=== PATIENT | male | born 1985 | race American Indian/Alaskan Native ===

== ENCOUNTER 2016-10-21 19:59 | Emergency (ER) | payer SELFPAY ==
[2016-10-21 20:15] VITALS: BP 197/120
[2016-10-21 21:42] LABS: Basophils % (Auto) 0.5 % (0.0-1.8); Eosinophils % (Auto) 1.8 % (0.0-4.3); Hematocrit 46.5 % (35.5-45.6); Hemoglobin 15.9 gm/dl (11.8-15.2); Mean Corpuscular HGB Conc 34 % (32-34); Mean Corpuscular Hemoglobin 28 pg (28-32); Mean Corpuscular Volume 82 fl (84-94); Platelet Count 176 K/mm3 (140-440); Red Blood Count 5.69 M/mm3 (3.65-5.03); Red Cell Distribution Width 13.8 % (13.2-15.2); White Blood Count 9.6 K/mm3 (4.5-11.0)
[2016-10-21 22:23] LABS: Blood Urea Nitrogen 12 mg/dL (9-20); Calcium 11.4 mg/dL (8.4-10.2); Carbon Dioxide 24 mmol/L (22-30); Chloride 100.7 mmol/L (98-107); Glucose 120 mg/dL (75-100); Potassium 3.3 mmol/L (3.6-5.0); Sodium 139 mmol/L (137-145)
[2016-10-21 22:37] LABS: Anion Gap 18 mmol/L
--- NOTE | 2016-10-24 19:37 | ED Elopement Review ---
ED Pt Elopement review - Results review Lab results: Laboratory Tests 10/21/16 10/21/16 10/21/16 20:45 20:45 20:45 WBC 9.6 RBC 5.69 H Hgb 15.9 H Hct 46.5 H MCV 82 L MCH 28 MCHC 34 RDW 13.8 Plt Count 176 Lymph % (Auto) 31.6 [place] % (Auto) 7.6 H Eos % (Auto) 1.8 Baso % (Auto) 0.5 Lymph # 3.0 [place] # 0.7 Eos # 0.2 Baso # 0.0 Seg Neutrophils % 58.5 Seg Neutrophils # 5.6 Sodium 139 Potassium 3.3 L Chloride 100.7 Carbon Dioxide 24 Anion Gap 18 BUN 12 Creatinine 0.6 L Estimated GFR > 60 BUN/Creatinine Ratio 20.00 Glucose 120 H Calcium 11.4 H Plasma/Serum Alcohol < 0.01 - Call Back decision Pt Call Back Decision: Call pt to return to ED CASIE (suicidal, hypertensive)
== END 2016-10-21 20:46 ==
LOC: ED 19:59
DX: R45.851 Suicidal ideations (principal); F31.9 Bipolar disorder, unspecified; E78.00 Pure hypercholesterolemia, unspecified; E83.51 Hypocalcemia; Z72.0 Tobacco use; Z53.21 Procedure and treatment not carried out due to patient leaving prior to being seen by health care provider
CPT/HCPCS: 36415; 80048; 85025; G0480; 80320

== ENCOUNTER 2017-01-25 17:17 | Emergency (ER) | payer MEDICARE | END 2017-01-25 19:00 | disposition left against medical advice (07) | LOC: ED 17:17 | DX: L02.429 Furuncle of limb, unspecified (principal); Z53.21 Procedure and treatment not carried out due to patient leaving prior to being seen by health care provider ==

== ENCOUNTER 2017-04-20 14:31 | Emergency (ER) | payer MEDICARE ==
--- NOTE | 2017-04-20 15:05 | Emergency Department Report ---
HPI - General Chief Complaint: Psych Time Seen by Provider: 04/20/17 14:51 - HPI HPI: This is a 32-year-old male who presents to the emergency department via [facility] [employer] from his motel room with the complaint of depression and suicidal ideations. The patient has a history of bipolar disorder and ADHD and says he has not been on medications since he moved down here from [place]. He says that he has the plan to either slit his wrist or overdose on medications. He says that he has been into an inpatient psychiatric facility in the past. He denies any current alcohol use or any illicit drug use or abuse. He called the police himself. He is a tobacco smoker. ED Past Medical Hx - Past Medical History Previous Medical History?: Yes Hx Hypertension: Yes (not on any meds for BP) Hx Psychiatric Treatment: Yes (BIPOLAR not on meds) Additional medical history: High cholesterol/Hypocalcemia/heart murmur - Surgical History Past Surgical History?: Yes Hx Appendectomy: Yes Additional Surgical History: Parothyroidectomy/HERNIA/left ankle surgery - Social History Smoking Status: Current Every Day Smoker Substance Use Type: Prescribed - Medications Home Medications: Home Medications Medication Instructions Recorded Confirmed Last Taken Type No Known Home Medications [No 10/21/16 10/21/16 Unknown History Reported Home Medications] ED Review of Systems ROS: Stated complaint: PSYCH EVAL Other details as noted in HPI Comment: All other systems reviewed and negative Constitutional: denies: chills, fever Eyes: denies: eye pain, eye discharge, vision change ENT: denies: ear pain, throat pain Respiratory: denies: cough, shortness of breath, wheezing Cardiovascular: denies: chest pain, palpitations Gastrointestinal: denies: abdominal pain, nausea, diarrhea Genitourinary: denies: urgency, dysuria Musculoskeletal: denies: back pain, joint swelling, arthralgia Skin: denies: rash, lesions Neurological: denies: headache, weakness, paresthesias Psychiatric: depression, suicidal thoughts. denies: auditory hallucinations, visual hallucinations, homicidal thoughts Physical Exam - Physical Exam Vital Signs: Vital Signs 04/20/17 14:40 Temperature 98.6 F Pulse Rate 82 Respiratory 18 Rate Blood Pressure 148/100 O2 Sat by Pulse 97 Oximetry Physical Exam: GENERAL: The patient is well-developed well-nourished. HEENT: Normocephalic. Atraumatic. Extraocular motions are intact. Patient has moist mucous membranes. Pupils equal reactive to light bilaterally. NECK: Supple. Trachea is midline. CHEST/LUNGS: Clear to auscultation. There is no respiratory distress noted. HEART/CARDIOVASCULAR: Regular. There is no tachycardia. There is no gallop rub or murmur. ABDOMEN: Abdomen is soft, nontender. Patient has normal bowel sounds. There is no abdominal distention. Obese habitus. SKIN: Skin is warm and dry. NEURO: The patient is awake, alert, and oriented. The patient is cooperative. The patient has no focal neurologic deficits. The patient has normal speech. MUSCULOSKELETAL: There is no tenderness or deformity. There is no limitation range of motion. There is no evidence of acute injury. ED Course Vital Signs 04/20/17 14:40 Temperature 98.6 F Pulse Rate 82 Respiratory 18 Rate Blood Pressure 148/100 O2 Sat by Pulse 97 Oximetry ED Medical Decision Making - Lab Data Result diagrams: 04/20/17 15:00 04/20/17 15:00 - Medical Decision Making 32-year-old male presents from his motel room where via PD with suicidal ideations and depression. No auditory or visual hallucinations. Patient does not appear intoxicated. Vital signs stable throughout his ED course. Patient' s blood work thus far is mostly unremarkable. We are waiting for a urine sample for urinalysis and urine drug screen. If the patient has a urinary tract infection he will be treated with antibiotics. I do not believe that the results of a urine drug screen will change whether or not the patient is medically cleared as he does not appear acutely intoxicated. The patient has been made a 1013 at this time secondary to his suicidal ideations. Once the urinalysis and UDS are back, the patient will be seen by the crisis therapist but I feel that the patient is medically cleared for psychiatric placement. - Differential Diagnosis bipolar disorder, schizophrenia, depression, schizoaffective Critical Care Time: No Critical care attestation.: If time is entered above; I have spent that time in minutes in the direct care of this critically ill patient, excluding procedure time. ED Disposition Clinical Impression: Suicidal ideations Depression Qualifiers: Depression Type: unspecified Qualified Code(s): F32.9 - Major depressive disorder, single episode, unspecified Disposition: [id number]/TX-65 PSY HOSP/PSY UNIT Is pt being admited?: No Condition: Stable Referrals: PRIMARY CARE, [Primary Care Provider] - 3-5 Days Time of Disposition: 15:36
[2017-04-20 15:25] LABS: Eosinophils % (Auto) 2.6 % (0.0-4.3); Hematocrit 45.8 % (35.5-45.6); Hemoglobin 15.4 gm/dl (11.8-15.2); Mean Corpuscular HGB Conc 34 % (32-34); Mean Corpuscular Hemoglobin 28 pg (28-32); Mean Corpuscular Volume 83 fl (84-94); Platelet Count 151 K/mm3 (140-440); Red Blood Count 5.51 M/mm3 (3.65-5.03); Red Cell Distribution Width 14.7 % (13.2-15.2); White Blood Count 11.1 K/mm3 (4.5-11.0)
[2017-04-20 15:31] LABS: Anion Gap 14 mmol/L; BUN/Creatinine Ratio 17.14; Blood Urea Nitrogen 12 mg/dL (9-20); Calcium 10.9 mg/dL (8.4-10.2); Carbon Dioxide 27 mmol/L (22-30); Chloride 102.3 mmol/L (98-107); Glucose 83 mg/dL (75-100); Potassium 3.8 mmol/L (3.6-5.0); Sodium 139 mmol/L (137-145)
[2017-04-20 16:11] LABS: Urine Drugs of Abuse Note Disclamer
[2017-04-20 16:21] LABS: Bilirubin,Urine NEG (Negative); Blood,Urine NEG (Negative); Ketones,Urine NEG (Negative); Leukocyte Esterase,Urine NEG (Negative); Mucus,Urine FEW /HPF; Nitrite,Urine NEG (Negative); Protein,Urine <15 mg/dL mg/dL (Negative); Urobilinogen,Urine < 2.0 mg/dL (<2.0); WBC,Urine < 1.0 /HPF (0.0-6.0)
[2017-04-20] MEDS ORDERED: GEODON IM ONE (18:31)
[2017-04-20] MEDS ORDERED: BENADRYL PO PRN (21:38)
[2017-04-21] MEDS ORDERED: ZESTRIL ONE (10:31)
[2017-04-21] MEDS: ZESTRIL PO SCH (10:39)
--- NOTE | 2017-04-21 11:26 | Consultation ---
History of Present Illness - Reason for Consult Consult date: 04/21/17 Reason for consult: Mental Health Evaluation Requesting physician: POOJA EARL - Chief Complaint Chief complaint: "I just don't feel right" - History of Present Psychiatric Illness This is a 32-year-old male who presents to the emergency department via [facility] [employer] from his motel room with the complaint of depression and suicidal ideations. Today patient is calm, cooperative, but anxious during assessment. He stated struggling with depression for years. He stated that social stressors (finances and living arrangements) has exacerbated his depression. He stated that he resides in a hotel with his girlfriend currently. He stated that he just moved here from [place]. He stated being suicidal currently with a plan to overdose. He stated that he attempted suicide in his mid 20's by cutting his wrist. Patient is adamant about getting help for his depression (hopelessness, low energy, and lack motivation). He denies HI's, AVH's, sleep disturbance, and a poor appetite. He denies recreational drug use and excessive alcohol consumption (etoh). Medications and Allergies Allergies Allergy/AdvReac Type Severity Reaction Status Date / Time No Known Allergies Allergy Verified 10/21/16 20:15 Home Medications Medication Instructions Recorded Confirmed Last Taken Type Lisinopril [Zestril TAB] 10 mg PO QDAY 04/21/17 04/21/17 Unknown History Active Meds: Active Medications Diphenhydramine HCl (Benadryl) 50 mg PO QHS PRN PRN Reason: Insomnia Last Admin: 04/20/17 21:51 Dose: 50 mg Lisinopril (Zestril) 10 mg PO DAILY SAPNA Last Admin: 04/21/17 10:39 Dose: 10 mg Past psychiatric history - Past Medical History Past Medical History: hyperlipidemia Past Surgical History: Other (Left ankle surgery) - past Psychiatric treatment and history Psych: Bipolar psychiatric treatment history: Patient admit to inpatient psy services. He denies a fam psy hx. - Social History Social history: other (GED, Resides with girlfriend in hotel) Mental Status Exam - Vital signs Last Vital Signs Temp 98.6 F 04/21/17 07:20 Pulse 71 04/21/17 10:45 Resp 20 04/21/17 10:45 BP 159/103 04/21/17 10:45 Pulse Ox 97 04/21/17 10:45 - Exam Narrative exam: ROS (+) depression (+) anxious MSE: Appearance: calm, cooperative Behavior: poor eye contact Speech: regular rate and tone Mood: "depressed" Affect: congruent to mood Thought Process: linear Thought Content: denies HI and AVH's Motor Activity: ambulatory Cognition: A/Ox 3 Insight: fair Judgment: limited Results Result Diagrams: 04/20/17 15:00 04/20/17 15:00 Abnormal lab results 04/20/17 04/20/17 Range/Units 15:00 15:00 WBC 11.1 H (4.5-11.0) K/mm3 RBC 5.51 H (3.65-5.03) M/mm3 Hgb 15.4 H (11.8-15.2) gm/dl Hct 45.8 H (35.5-45.6) % MCV 83 L (84-94) fl Baso % (Auto) 3.0 H (0.0-1.8) % Baso # 0.3 H (0.0-0.1) K/mm3 Seg Neutrophils % 74.8 H (40.0-70.0) % Seg Neutrophils # 8.3 H (1.8-7.7) K/mm3 Creatinine 0.7 L (0.8-1.5) mg/dL Calcium 10.9 H (8.4-10.2) mg/dL All other labs normal. Assessment and Plan Assessment and plan: Impression: MDD Severe type, DILCIA, Historical Dx: Possibe Bipolar and ADHD. Today patient is calm, cooperative, but anxious during assessment. DDx: R/O Bipolar Recommendation/Plan: Continue 1013 with pending placement to [facility]. Start Wellbutrin 150 mg PO for depression and Vistaril 25 mg PO BID for anxiety. Discussed suicidality/medication induced reanna with patient reference antidepressants.
[2017-04-21] MEDS ORDERED: WELLBUTRIN PO SCH (16:00)
[2017-04-21] MEDS: VISTARIL PO SCH (22:14)
[2017-04-22] MEDS: VISTARIL PO SCH (11:01)
[2017-04-22] MEDS: ZESTRIL PO SCH (11:02)
[2017-04-22 11:47] VITALS: BP 122/79
--- NOTE | 2017-04-22 11:50 | Progress Note ---
Subjective - Reason for Consult Consult date: 04/22/17 Reason for consult: Psychiatry Follow-up - Chief Complaint Chief complaint: "Thanks for listening" This is a 32-year-old male who presents to the emergency department via [facility] Department from his motel room with the complaint of depression and suicidal ideations. Today patient is calm and cooperative during assessment. He denies being anxious today. He stated having passive SI's. He stated that he want the SI's to go away so he can function. He denies HI's and AVH's. He denies any side effects of his medications. Mental Status Exam - Vital signs Last Vital Signs Temp 98 F 04/22/17 11:44 Pulse 88 04/22/17 11:44 Resp 18 04/22/17 11:44 BP 122/79 04/22/17 11:44 Pulse Ox 97 04/22/17 11:44 - Exam Narrative exam: MSE: Appearance: calm, cooperative Behavior: good eye contact Speech: regular rate and tone Mood: "so so" Affect: congruent to mood Thought Process: linear Thought Content: denies HI and AVH's Motor Activity: ambulatory Cognition: A/Ox 3 Insight: fair Judgment: limited Assessment and Plan Impression: MDD Severe type, DILCIA, Historical Dx: Possibe Bipolar and ADHD. Today patient is calm and cooperative. Passive SI's. Recommendation/Plan: Continue 1013 with placement to [place] (pending transportation). Continue Wellbutrin 150 mg PO for depression and Vistaril 25 mg PO BID for anxiety. Discussed suicidality/medication induced reanna with patient reference antidepressants.
== END 2017-04-22 14:07 ==
LOC: ED 14:31 → EEVIPCON 14:31 → ED 04-22 14:07
DX: R45.851 Suicidal ideations (principal); I10 Essential (primary) hypertension; F31.9 Bipolar disorder, unspecified; E78.00 Pure hypercholesterolemia, unspecified; F17.200 Nicotine dependence, unspecified, uncomplicated
CPT/HCPCS: 36415; 80048; 80307; 81001; 85025; 99285; G0480; 80320; Q0177